=== PATIENT | male | born 1945 | race Native Hawaiian/Other Pacific Islander ===

== ENCOUNTER 2019-03-06 14:53 | Outpatient (CLI) | payer OTHER | END 2019-03-06 19:45 | disposition home or self-care (01) | LOC: LABW 14:53 | DX: R05 Cough (principal) | CPT/HCPCS: 87070; 87205 ==

== ENCOUNTER 2020-01-20 10:25 | Outpatient (CLI) | payer OTHER | END 2020-01-20 22:31 | disposition home or self-care (01) | LOC: RAD 10:25 | DX: Z03.89 Encounter for observation for other suspected diseases and conditions ruled out (principal) ==

== ENCOUNTER 2020-01-22 12:42 | Outpatient (CLI) | payer OTHER | END 2020-01-22 19:05 | disposition home or self-care (01) | LOC: RAD 12:42 | DX: J44.9 Chronic obstructive pulmonary disease, unspecified (principal) ==

== ENCOUNTER 2022-07-17 09:58 | Outpatient (CLI) | payer OTHER ==
[2022-07-17 10:27] LABS: POTASSIUM 4.3 mmol/L (3.6-5.2)
[2022-07-17 13:43] LABS: PLATELET COUNT 237 K/uL (142-355)
== END 2022-07-17 21:11 ==
LOC: LABW 09:58
PROVIDERS: ATTEND Internal Medicine Cardiovascular Disease
DX: I25.10 Atherosclerotic heart disease of native coronary artery without angina pectoris (principal)
CPT/HCPCS: 36415; 80053; 80061; 85027